=== PATIENT | male | born 1985 | race Caucasian/White ===

== ENCOUNTER 2017-03-13 09:43 | Emergency (ER) | payer MEDICAID ==
[~2017-03-13] VITALS: Ht 175.3 cm; Wt 103.4 kg
[~2017-03-13 09:43] MED LIST: HYDR-971 PO; IBUP200T77 PO; OXYC-323 PO
[2017-03-13] MEDS ORDERED: DIPHTH,PERTUSS(ACELL),TET TOX 0.5 ML DISP.SYRIN. VAX IM ONE (10:15)
[2017-03-13] MEDS ORDERED: HYDR-2758 PO (10:30)
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
[2017-03-13] MEDS ORDERED: HYDROcodone/APAP 5/325MG 1 TAB TABLET PO ONE (11:30)
[2017-03-13 11:45] VITALS: BP 129/70
== END 2017-03-13 11:58 | disposition home or self-care (01) ==
LOC: ER 09:43
DX: S06.0X9A Concussion with loss of consciousness of unspecified duration, initial encounter (principal); M25.511 Pain in right shoulder; M54.2 Cervicalgia; F12.10 Cannabis abuse, uncomplicated; Y04.0XXA Assault by unarmed brawl or fight, initial encounter; Y93.75 Activity, martial arts; Y99.8 Other external cause status; Y92.89 Other specified places as the place of occurrence of the external cause
CPT/HCPCS: 70450; 70486; 72125; 73030; 90471; 90715; 99284-25

== ENCOUNTER 2017-09-03 14:31 | Emergency (ER) | payer SELFPAY, MEDICAID | END 2017-09-03 16:44 | disposition home or self-care (01) | LOC: ER 14:31 | DX: S89.91XA Unspecified injury of right lower leg, initial encounter (principal); F12.10 Cannabis abuse, uncomplicated; Y04.0XXA Assault by unarmed brawl or fight, initial encounter; Y93.72 Activity, wrestling; Y92.89 Other specified places as the place of occurrence of the external cause; Y99.8 Other external cause status | CPT/HCPCS: 73564; 99284 ==

== ENCOUNTER → 2017-10-16 | Outpatient (CLI) | payer OTHER | END | disposition home or self-care (01) | LOC: KCIC MRI 16:04 | DX: S80.11XA Contusion of right lower leg, initial encounter (principal); M25.461 Effusion, right knee; M25.561 Pain in right knee; X58.XXXA Exposure to other specified factors, initial encounter; Y93.89 Activity, other specified; Y92.89 Other specified places as the place of occurrence of the external cause; Y99.8 Other external cause status | CPT/HCPCS: 73721 ==